=== PATIENT | male | born 1975 | race Caucasian/White ===

== ENCOUNTER 2022-06-25 10:34 | Emergency (ER) | payer BC, SELFPAY ==
[2022-06-25 10:42] VITALS: BP 114/77; PULSE 71; RESP 20; TEMP 36.5; O2SAT 99
--- NOTE | 2022-06-25 11:21 | ED.URI ---
HPI - URI/Sore Throat General Chief Complaint: Upper Respiratory Infection Stated Complaint: Sore throat, coughing, congestions Time Seen by Provider: 06/25/22 10:50 Source: patient, RN notes reviewed and old records reviewed Mode of arrival: ambulatory Limitations: no limitations History of Present Illness HPI Narrative: 46 year old male who presents to [facility] with complaints of sinus congestion and drainage , ear pain, sore throat, productive cough since Friday. Patient reports that he had a 101.8 F fever this morning. Patient reports that he has been taking DayQuil for his symptoms. Patient states that his and daughter is also ill with similar symptoms. Patient reports that he has had Covid vaccinations and also flu shot. Patiet states that it feels like his sinuses are on fire and his left ear hurts with cough productive of white mucous. MD elicited complaint: fever, cough, sore throat, rhinorrhea, nasal congestion and other (ear pain) Pertinent past history: asthma Onset (ago): day(s) (Day 3 of symptoms) Treatments prior to arrival: other (DayQuil) Related Data Home Medications Medication Instructions Recorded Confirmed allopurinol 100 mg tablet 100 mg PO DAILY 06/25/22 06/25/22 cetirizine 10 mg capsule (Zyrtec) 10 mg PO DAILY 06/25/22 06/25/22 esomeprazole magnesium 40 mg 40 mg PO DAILY 06/25/22 06/25/22 capsule,delayed release (Nexium) nebivolol 5 mg tablet (Bystolic) 5 mg PO DAILY 06/25/22 06/25/22 quinapril 40 mg tablet 40 mg PO DAILY 06/25/22 06/25/22 simvastatin 20 mg tablet (Zocor) 20 mg PO DAILY 06/25/22 06/25/22 tamsulosin 0.4 mg capsule 0.4 mg PO DAILY 06/25/22 06/25/22 Allergies Allergy/AdvReac Type Severity Reaction Status Date / Time iohexol Allergy Hives Verified 06/25/22 10:51 [From contrast - CT, X-RAY] codeine AdvReac Nausea and Verified 06/25/22 10:51 Vomiting Review of Systems Review of Systems: CONSTITUTIONAL: Positive fever, chills, or sweats. EYES: Denies visual changes, redness, or discharge. ENT: Positive rhinorrhea, congestion, sore throat, left otalgia. CARDIOVASCULAR: Denies chest pain, palpitations, or edema. RESPIRATORY: Positive productive cough denies dyspnea. GASTROINTESTINAL: Denies abdominal pain, nausea, vomiting, or diarrhea. GENITOURINARY: Denies dysuria or hematuria. SKIN: Denies rash or itching. MUSCULOSKELETAL: Denies back pain, joint pain, or myalgia. NEUROLOGIC: Denies headache, numbness, or weakness. PSYCHIATRIC: Denies anxiety or depression. All systems reviewed & are unremarkable except as noted in HPI and below PMFSH Past Medical History Medical History (Updated 06/27/22 @ 12:50 by Gris Beltran NP) Asthma Elevated cholesterol GERD (gastroesophageal reflux disease) Gout Hypertension Surgical History Surgical History (Updated 06/27/22 @ 12:51 by Gris Beltran NP) H/O umbilical hernia repair History of vasectomy Social History Social History (Updated 06/27/22 @ 12:52 by Gris Beltran NP) Smoking status: Former smoker Additional smoking assessment comments: Quit smoking and chewing in 2014 Alcohol intake: current Alcohol use details: Social Substance use type: does not use Living arrangements: with family Gender identity (if verbalized by the patient): Male Comments At time of signature, agree with nursing past medical, surgical, social and family history. There is no relevant family history pertinent to the presenting complaint Exam Narrative: GENERAL: Well-appearing, well-nourished, and in no acute distress. HEAD: Normocephalic, atraumatic. EYES: PERRLA and EOMI. ENT: Nares red with clear rhinorrhea no epistaxis. Mucous membranes moist. TM's normal to right ear with good light reflex no drainage left TM red with swelling no drainage noted from ear canal,throat red with no lesions or exudates no tonsil swelling. NECK: Supple. No lymphadenopathy CHEST: Clear to auscultation. No respiratory distres
== END 2022-06-25 11:34 | disposition home or self-care (01) ==
PROVIDERS: Emergency Provider Registered Nurse; PCP Internal Medicine
DX: H66.92 Otitis media, unspecified, left ear (principal); J06.9 Acute upper respiratory infection, unspecified; Z20.822 Contact with and (suspected) exposure to COVID-19; Z87.891 Personal history of nicotine dependence; J45.909 Unspecified asthma, uncomplicated; E78.00 Pure hypercholesterolemia, unspecified; K21.9 Gastro-esophageal reflux disease without esophagitis; M10.9 Gout, unspecified; I10 Essential (primary) hypertension; Z98.52 Vasectomy status
CPT/HCPCS: 87081; 87426; 87880; 99213; C9803; G0463